=== PATIENT | male | born 1965 | race Caucasian/White ===

== ENCOUNTER → 2016-10-01 | Outpatient (CLI) | payer MEDICARE, MEDICAID ==
[~2016-10-01] MED LIST: ASPI-983 PO; ATOR40TA70 PO; CARV6.252 PO; FURO-124 PO; LISI-556 PO; LISI2.5T PO; POTA10CA43 PO
--- NOTE | 2016-10-04 12:33 | ECHOCARDIOGRAPHY REPORT ---
PROCEDURE PHYSICIAN: STANISLAW ADRIAN DATE OF PROCEDURE: 10/01/2016 TWO DIMENSIONAL ECHOCARDIOGRAM REPORT PRIMARY PHYSICIAN: Dr. Gilbert OTHER PHYSICIAN: REFERRING PHYSICIAN: ORDERING PHYSICIAN: Ele Mir APRN INDICATION FOR THE PROCEDURE: Dilated cardiomyopathy, chronic kidney disease, Stage III, Tobacco use MEASUREMENTS DERIVED VALUES LV DIAMETER (LAX) NORMALS NORMALS Diastolic 4.7 (3.6-5.2) Eject. Fract. (60%+/-6%) Systolic (2.3-3.9) Diastolic Vol. % Shortening (0.22-0.42) Systolic Vol. Aortic Root 2.7 IVS THICKNESS Diastolic 0.7 (0.6-1.1) LVPW THICKNESS Diastolic (0.6-1.1) LA DIAMETER Systolic 2. (2.1-3.7) DESCRIPTION: 2-dimension echography showed normal global left ventricular systolic function with normal regional wall motion. Left ventricular ejection fraction is approximately 65%. Aortic, mitral and tricuspid valve leaflets show good leaflet excursion. The study is technically difficult. Valvular structures are not very well visualized. Doppler imaging shows trivial to mild mitral and tricuspid regurgitation. There is no Doppler evidence of significant valvular stenosis. Mitral inflow is suggestive of grade I diastolic dysfunction of the left ventricle. There is no Doppler evidence of significant valvular stenosis. There is no evidence of intracardiac shunt on this transthoracic echocardiographic study. Inferior vena cava appears mostly collapsed during this study. CONCLUSION: 1. Normal global left ventricular systolic function with an ejection fraction of approximately 65%. 2. Trivial to mild mitral and tricuspid regurgitation. 3. Pulmonary artery systolic pressure is estimated to be within normal limits. 4. Mild diastolic dysfunction of the left ventricle. Job ID: [id number] Dictated Date: 10/04/2016 09:24:40 [employer] Date: 10/04/2016 12:25:55 / [email or web address]
== END ==
LOC: CARD 12:07
PROVIDERS: ATTEND Nurse Practitioner Family
DX: I42.0 Dilated cardiomyopathy (principal); I70.213 Atherosclerosis of native arteries of extremities with intermittent claudication, bilateral legs; N18.3 Chronic kidney disease, stage 3 (moderate); Z72.0 Tobacco use
CPT/HCPCS: 93306

== ENCOUNTER → 2017-05-22 | Outpatient (CLI) | payer MEDICARE, MEDICAID ==
[2017-05-22 09:15] LABS: BILIRUBIN,TOTAL 0.8 MG/DL (0.1-1.0); CALCIUM 8.8 MG/DL (8.5-10.1); CREATININE SERUM 1.36 MG/DL (0.60-1.30); TOTAL PROTEIN 7.1 GM/DL (6.4-8.2)
== END ==
LOC: LAB 08:37
PROVIDERS: ATTEND Nurse Practitioner Family
DX: E78.4 Other hyperlipidemia; I65.23 Occlusion and stenosis of bilateral carotid arteries; I70.213 Atherosclerosis of native arteries of extremities with intermittent claudication, bilateral legs; I42.0 Dilated cardiomyopathy; N18.3 Chronic kidney disease, stage 3 (moderate)
CPT/HCPCS: 36415; 80053; 80061

== ENCOUNTER → 2017-11-12 | Outpatient (CLI) | payer MEDICARE, MEDICAID ==
[2017-11-12 08:58] LABS: ALANINE AMINOTRANSFERASE 28 U/L (0-55); ALBUMIN 3.9 GM/DL (3.2-4.5); ALKALINE PHOSPHATASE 73 U/L (40-136); BILIRUBIN,TOTAL 0.5 MG/DL (0.1-1.0); BUN/CREATININE RATIO 14; CALCIUM 8.5 MG/DL (8.5-10.1); CARBON DIOXIDE 25 MMOL/L (21-32); CHLORIDE 108 MMOL/L (98-107); CHOLESTEROL 119 MG/DL (< 200); CREATININE SERUM 1.18 MG/DL (0.60-1.30); GFR ESTIMATED > 60; GLUCOSE 102 MG/DL (70-105); HDL CHOLESTEROL 39 MG/DL (40-60); POTASSIUM 4.4 MMOL/L (3.6-5.0); SODIUM 137 MMOL/L (135-145); TOTAL PROTEIN 6.7 GM/DL (6.4-8.2); TRIGLYCERIDES 63 MG/DL (<150); VLDL CHOLESTEROL 13 MG/DL (5-40)
== END ==
LOC: LAB 08:22
PROVIDERS: ATTEND Nurse Practitioner Family
DX: I42.0 Dilated cardiomyopathy (principal); I73.9 Peripheral vascular disease, unspecified; I65.29 Occlusion and stenosis of unspecified carotid artery; E78.5 Hyperlipidemia, unspecified; Z72.0 Tobacco use
CPT/HCPCS: 36415; 80053; 80061

== ENCOUNTER → 2018-05-26 | Outpatient (CLI) | payer MEDICARE, MEDICAID ==
[2018-05-26 08:52] LABS: ALANINE AMINOTRANSFERASE 22 U/L (0-55); ALKALINE PHOSPHATASE 61 U/L (40-136); BILIRUBIN,TOTAL 0.6 MG/DL (0.1-1.0); BUN/CREATININE RATIO 16; CARBON DIOXIDE 25 MMOL/L (21-32); CHLORIDE 106 MMOL/L (98-107); CHOLESTEROL 126 MG/DL (< 200); CREATININE SERUM 1.22 MG/DL (0.60-1.30); GFR ESTIMATED > 60; GLUCOSE 95 MG/DL (70-105); HDL CHOLESTEROL 36 MG/DL (40-60); POTASSIUM 4.3 MMOL/L (3.6-5.0); SODIUM 137 MMOL/L (135-145); TOTAL PROTEIN 6.8 GM/DL (6.4-8.2); TRIGLYCERIDES 82 MG/DL (<150); VLDL CHOLESTEROL 16 MG/DL (5-40)
== END ==
LOC: LAB 08:14
PROVIDERS: ATTEND Nurse Practitioner Family
DX: E78.5 Hyperlipidemia, unspecified (principal); N18.3 Chronic kidney disease, stage 3 (moderate); I73.9 Peripheral vascular disease, unspecified
CPT/HCPCS: 36415; 80053; 80061

== ENCOUNTER → 2019-09-16 | Outpatient (CLI) | payer MEDICARE, MEDICAID ==
[2019-09-16 09:43] LABS: CALCIUM 8.9 MG/DL (8.5-10.1); CREATININE SERUM 1.4 MG/DL (0.60-1.30)
== END ==
LOC: LAB 09:10
PROVIDERS: ATTEND Nurse Practitioner Family
DX: I10 Essential (primary) hypertension (principal)
CPT/HCPCS: 36415; 80048

== ENCOUNTER → 2020-07-14 | Outpatient (CLI) | payer MEDICARE, MEDICAID ==
[~2020-07-14] MED LIST changes: +ASPI-1238 PO; -ASPI-983 PO
== END ==
LOC: CARD 08:10
PROVIDERS: ATTEND Nurse Practitioner Family
DX: I42.0 Dilated cardiomyopathy (principal)
CPT/HCPCS: 93306

== ENCOUNTER → 2021-10-25 | Outpatient (CLI) | payer MEDICARE, MEDICAID ==
[~2021-10-25] MED LIST changes: -LISI-556 PO; -LISI2.5T PO; +LISI2.5T13 PO; +LISI5TAB20 PO
[2021-10-25 09:34] LABS: ALBUMIN 3.9 GM/DL (3.2-4.5); BILIRUBIN,TOTAL 0.8 MG/DL (0.1-1.0); CALCIUM 8.8 MG/DL (8.5-10.1); CREATININE SERUM 1.45 MG/DL (0.60-1.30); POTASSIUM 4.5 MMOL/L (3.6-5.0); TOTAL PROTEIN 6.6 GM/DL (6.4-8.2)
== END ==
LOC: LAB 08:43
PROVIDERS: ATTEND Nurse Practitioner Family
DX: E78.2 Mixed hyperlipidemia (principal); I42.0 Dilated cardiomyopathy; I13.0 Hypertensive heart and chronic kidney disease with heart failure and stage 1 through stage 4 chronic kidney disease, or unspecified chronic kidney disease; N18.31 Chronic kidney disease, stage 3a; I50.22 Chronic systolic (congestive) heart failure; I74.09 Other arterial embolism and thrombosis of abdominal aorta; I65.23 Occlusion and stenosis of bilateral carotid arteries
CPT/HCPCS: 36415; 80053; 80061

== ENCOUNTER → 2021-10-30 | Outpatient (CLI) | payer MEDICARE, MEDICAID | LOC: CARD 10:30 | PROVIDERS: ATTEND Nurse Practitioner Family | DX: I42.0 Dilated cardiomyopathy (principal) | CPT/HCPCS: 93306 ==